=== PATIENT | male | born 1975 | race Caucasian/White ===

== ENCOUNTER → 2016-10-12 | Outpatient (CLI) | payer BC ==
--- NOTE | 2016-10-12 12:43 | ECHOS ---
DATE OF SERVICE: 10/12/2016 TYPE OF REPORT: Stress Echocardiogram INDICATION: Chest pain. BASELINE HEART RATE: 78 BASELINE BLOOD PRESSURE: 111/50 MAXIMUM HEART RATE: 163 MAXIMUM BLOOD PRESSURE: 166/75 85% MPHR: 152 100% MPHR: 179 METS: 12.1 MAX STAGE REACHED: IV TOTAL EXERCISE TIME: 10:30 Baseline EKG revealed normal sinus rhythm without significant ST-T changes. Patient walked for 10 minutes 30 seconds. Achieved a maximum heart rate of 163 beats per minute, which is well above 85% of predicted maximal. He developed fatigue and shortness of breath, but did not have angina or arrhythmia. EKG did not reveal any ST segment changes to indicate ischemia. Resting heart rate was 78 beats per minute and resting blood pressure was 111/50. Peak heart rate was 163 beats per minute and peak blood pressure was 166/75. This is a negative stress test with excellent exercise capacity. Baseline echo images revealed a normal wall motion and wall thickening of all segments. At peak exercise, there was good augmentation of left ventricular wall motion and wall thickening of all segments suggesting that there is no evidence of stress induced ischemia on this study. FINAL IMPRESSION: 1. Excellent exercise capacity with a negative stress test by EKG criteria. 2. Normal stress echocardiogram with good exercise capacity. l MTDD
== END | disposition home or self-care (01) ==
LOC: RADNMMAIN 09:10
PROVIDERS: ATTEND Family Medicine
DX: R00.2 Palpitations (principal)
CPT/HCPCS: 93017; 93350

== ENCOUNTER → 2017-06-08 | Outpatient (CLI) | payer BC ==
--- NOTE | 2017-06-08 18:15 | MR ---
EXAMINATION TYPE: MR shoulder RT wo con DATE OF EXAM: 06/08/2017 COMPARISON: NONE HISTORY: Rt shoulder impingement, hx injury/surgery 20 yrs ago TECHNIQUE: Multiplanar, multisequence imaging of the right shoulder is performed without contrast. FINDINGS: Rotator Cuff: There is abnormal increased signal within the rotator cuff suggestive of tendinosis, so me intrasubstance signal is present, difficult to exclude a partial full-thickness tear at the level of the insertion Acromioclavicular Joint: Suspect postop changes are present Glenohumeral Joint: Intact Labrum: The labrum appears grossly intact given limitation of non-arthrogram study. Biceps Tendon: Some fluid signal is present along the long head of biceps tendon. Bone marrow signal: Some reactive marrow edema is suspected at the anterior aspect of the humerus, so me pseudocysts are also present in the humeral head. Other: There is a distal acromial spur. Fluid signal present in the subacromial subdeltoid bursa IMPRESSION: Tendinopathy suspected, correlate for impingement, there may be a partial full-thickness tear, there is reactive marrow edema, fluid in the subacromial subdeltoid bursa
== END | disposition home or self-care (01) ==
LOC: RADMRIMAIN 14:25
PROVIDERS: ATTEND Family Medicine
DX: M75.41 Impingement syndrome of right shoulder (principal)